=== PATIENT | female | born 1940 | race Caucasian/White ===

== ENCOUNTER 2021-11-19 08:32 | Emergency (ER) | payer BC, MEDICARE ==
[~2021-11-19] VITALS: Ht 149.9 cm; Wt 48.1 kg
[2021-11-19] MEDS ORDERED: SENN-301 PO (08:54)
[2021-11-19] MEDS ORDERED: ESCI20TA PO (08:54)
[2021-11-19] MEDS ORDERED: BUPR150T5 PO (08:54)
[2021-11-19] MEDS ORDERED: LOSA100T31 PO (08:54)
[2021-11-19] MEDS ORDERED: DONE5TAB34 PO (08:54)
[2021-11-19] MEDS ORDERED: MIRA25TA PO (08:54)
[2021-11-19] MEDS ORDERED: ATOR80TA PO (08:54)
[2021-11-19] MEDS ORDERED: FURO20TA4 PO (08:54)
--- NOTE | 2021-11-19 08:55 | NUR ---
DR SILVER AT BEDSIDE FOR EVALUATION.
--- NOTE | 2021-11-19 10:52 | NUR ---
Gave pt d/c instructions, pt verbalized understanding.
== END 2021-11-19 10:56 ==
LOC: ER 08:32
DX: S00.83XA Contusion of other part of head, initial encounter (principal); S40.022A Contusion of left upper arm, initial encounter; W01.0XXA Fall on same level from slipping, tripping and stumbling without subsequent striking against object, initial encounter; Y93.E8 Activity, other personal hygiene; Y92.099 Unspecified place in other non-institutional residence as the place of occurrence of the external cause; I10 Essential (primary) hypertension
CPT/HCPCS: 70450; 73030; 73060; A4663